=== PATIENT | male | born 1935 | race Caucasian/White ===

== ENCOUNTER 2019-06-03 07:32 | Observation (INO) | payer MEDICARE, OTHER ==
[2019-06-02 14:32] LABS: BASOPHILS # (AUTO) 0.08 x10^3/uL (0-0.1); BASOPHILS % (AUTO) 1 % (0-1); EOSINOPHILS % (AUTO) 8 % (1-7); LYMPHOCYTES # (AUTO) 2.11 x10^3/uL (1-3.4); LYMPHOCYTES % (AUTO) 16 % (22-44); MD NO; MEAN CORPUSCULAR HEMOGLOBIN 33.4 pg (27.5-34.5); MEAN CORPUSCULAR HGB CONC 33.3 g/dL (33.2-36.2); MEAN CORPUSCULAR VOLUME 100.5 fL (81-97); MEAN PLATELET VOLUME 7.7 fL (7.4-10.4); MONOCYTES # (AUTO) 0.87 x10^3/uL (0.2-0.8); MONOCYTES % (AUTO) 7 % (2-9); NEUTROPHILS # (AUTO) 8.92 x10^3/uL (1.8-6.8); NEUTROPHILS % (AUTO) 68 % (42-75); PLATELET COUNT 368 x10^3/uL (130-400); RED BLOOD COUNT 4.45 x10^6/uL (4.38-5.82); RED CELL DISTRIBUTION WIDTH 14.7 % (9.4-14.8)
[2019-06-02 14:43] LABS: ALBUMIN 3.8 g/dL (3.4-5.0); ANION GAP 7 mmol/L (5-15); CALCIUM 9.3 mg/dL (8.5-10.1); CHLORIDE 108 mmol/L (98-107)
[2019-06-02 14:46] LABS: ALANINE AMINOTRANSFERASE 25 U/L (12-78); ALKALINE PHOSPHATASE 94 U/L (45-117); BILIRUBIN,TOTAL 0.6 mg/dL (0.2-1.0); CREATININE 1.83 mg/dL (0.7-1.3); TOTAL PROTEIN 7.7 g/dL (6.4-8.2)
[~2019-06-03] VITALS: Ht 170.2 cm; Wt 70.5 kg
[~2019-06-03 07:32] MED LIST: AMOX1TAB12 PO; ASPI-496 PO; GLUC500T11 PO; HYDR-3240 PO; LIDOCAINE 1%-EPI 1:100K, 20ML ONE; METH500T7 PO; STATIN PO; TEST100V2 IM; TESTOSTERONE IM
[2019-06-03 08:31] VITALS: BP 150/91
[2019-06-03] MEDS ORDERED: LACTATED RINGERS 1,000 ML IV SCH (08:35)
[2019-06-03] MEDS ORDERED: TEST50AU INJ (09:04)
[2019-06-03] MEDS ORDERED: ATOR-2 PO (09:04)
[2019-06-03] MEDS ORDERED: FENTANYL PF 250 MCG/5ML ONE (09:17)
[2019-06-03] MEDS ORDERED: EPINEPHRINE TOPICAL SOLN 1 MG/ML, 30ML ONE (10:05)
[2019-06-03] MEDS ORDERED: EPINEPHRINE 1 MG/ML, 1ML ONE (10:05)
[2019-06-03] MEDS ORDERED: MINERAL OIL 10 ML VIAL MC ONE (10:05)
[2019-06-03] MEDS ORDERED: CEFAZOLIN 1,000 MG ONE (10:25)
[2019-06-03] MEDS ORDERED: HYDROmorphone 2 MG/ML, 1ML IVPush PRN (11:30)
[2019-06-03] MEDS ORDERED: PROMETHAZINE 25 MG/ML, 1ML IV PRN (11:30)
[2019-06-03] MEDS ORDERED: MORPHINE SULFATE 4 MG/ML, 1ML IVPush PRN (11:30)
[2019-06-03] MEDS ORDERED: OXYcodone 5 MG/5 ML ORAL.SOL UDC PO PRN (11:30)
[2019-06-03] MEDS ORDERED: FENTANYL PF 100 MCG/2ML IV PRN (11:30)
[2019-06-03] MEDS ORDERED: ONDANSETRON 2MG/ML, 2ML IV PRN (11:30)
[2019-06-03] MEDS ORDERED: ACETAMINOPHEN 325 MG TABLET PO PRN (11:30)
[2019-06-03] MEDS ORDERED: LABETALOL 5MG/ML, 20ML IV PRN (11:30)
[2019-06-03] MEDS ORDERED: hydrALAzine 20 MG/ML, 1ML IV PRN (11:30)
[2019-06-03] MEDS ORDERED: ONDANSETRON 2MG/ML, 2ML ONE (12:27)
[2019-06-03] MEDS ORDERED: DEXAMETHASONE 4 MG/ML, 1ML ONE (12:27)
[2019-06-03] MEDS ORDERED: PHENYLEPHRINE 10 MG/ML ONE (12:27)
[2019-06-03] MEDS ORDERED: PROPOFOL 10 MG/ML, 20ML ONE (12:27)
[2019-06-03] MEDS ORDERED: ROCURONIUM 10MG/ML,5ML ONE (12:27)
[2019-06-03] MEDS ORDERED: BACITRACIN OINT 500U/GM, 15 GM ONE (14:07)
[2019-06-03 15:00] VITALS: BP 118/72
[2019-06-03] MEDS ORDERED: HYDROmorphone 2 MG/ML, 1ML IV PRN (15:30)
[2019-06-03] MEDS ORDERED: ONDANSETRON 2MG/ML, 2ML IVPush PRN (15:30)
[2019-06-03 18:49] VITALS: BP 106/68
[2019-06-03] MEDS: ATORVASTATIN 80 MG TABLET PO SCH (20:30)
[2019-06-04] MEDS: LACTATED RINGERS 1,000 ML IV SCH ×2 (00:11→12:30)
[2019-06-04 00:47] VITALS: BP 108/65
[2019-06-04 04:52] VITALS: BP 97/60
[2019-06-04 07:28] VITALS: BP 103/66
[2019-06-04 13:25] VITALS: BP 96/61
[2019-06-04 19:10] VITALS: BP 97/60
[2019-06-04] MEDS: ATORVASTATIN 80 MG TABLET PO SCH (21:33)
[2019-06-05 01:20] VITALS: BP 108/55
[2019-06-05] MEDS: LACTATED RINGERS 1,000 ML IV SCH (04:19)
[2019-06-05 07:55] VITALS: BP 111/57
[2019-06-05 13:02] VITALS: BP 121/71
[2019-06-17] MEDS ORDERED: TESTOSTERONE ENANTHATE HOMEINJ SCH (15:30)
== END 2019-06-05 17:56 | disposition home or self-care (01) ==
LOC: ORIP 07:32 → INTOOBSV 07:32 → EDSTATUS 12:30 → 4NE 14:52
PROVIDERS: ADMIT Specialist; ATTEND Specialist
DX: C08.9 Malignant neoplasm of major salivary gland, unspecified (principal); R59.0 Localized enlarged lymph nodes; G47.33 Obstructive sleep apnea (adult) (pediatric); Z79.899 Other long term (current) drug therapy; Z85.828 Personal history of other malignant neoplasm of skin
CPT/HCPCS: 36415; 38724; 42420; 80053; 85025; 86850; 86900; 88305; 88341; 88342; 93005; G0378; J0690; J1100; J2370; J2405; J2704; J3010; J3490; J7120; J0171

== ENCOUNTER → 2019-09-08 | Outpatient (CLI) | payer MEDICARE ==
[~2019-09-08] MED LIST changes: +ATOR-2 PO; -LIDOCAINE 1%-EPI 1:100K, 20ML ONE; +TEST50AU INJ
== END | disposition home or self-care (01) ==
LOC: CVU 08:41
PROVIDERS: ATTEND Family Medicine
DX: I08.3 Combined rheumatic disorders of mitral, aortic and tricuspid valves (principal); E78.5 Hyperlipidemia, unspecified
CPT/HCPCS: 93306

== ENCOUNTER 2020-01-20 20:55 | Inpatient (IN) | payer MEDICARE, OTHER ==
[~2020-01-20] VITALS: Ht 170.2 cm; Wt 68.3 kg
[2020-01-20 23:04] VITALS: BP 107/68
[2020-01-21] MEDS ORDERED: ACETAMINOPHEN 325 MG TABLET PO PRN (01:00)
[2020-01-21] MEDS ORDERED: TRAZODONE 50MG TABLET PO PRN (01:00)
[2020-01-21] MEDS ORDERED: ONDANSETRON 2MG/ML, 2ML IVPush PRN (01:00)
[2020-01-21] MEDS ORDERED: LABETALOL 5MG/ML, 20ML IVPush PRN (01:00)
[2020-01-21] MEDS ORDERED: FURO40TA6 PO (01:33)
[2020-01-21] MEDS ORDERED: FURO20TA3 PO (01:35)
[2020-01-21 02:54] VITALS: BP 101/65
[2020-01-21 03:08] LABS: BASOPHILS # (AUTO) 0.06 x10^3/uL (0-0.1); BASOPHILS % (AUTO) 1 % (0-1); EOSINOPHILS # (AUTO) 0.94 x10^3/uL (0-0.4); EOSINOPHILS % (AUTO) 7 % (1-7); LYMPHOCYTES % (AUTO) 13 % (22-44); MD NO; MEAN CORPUSCULAR HEMOGLOBIN 31.5 pg (27.5-34.5); MEAN CORPUSCULAR HGB CONC 33.4 g/dL (33.2-36.2); MEAN CORPUSCULAR VOLUME 94.6 fL (81-97); MEAN PLATELET VOLUME 7.7 fL (7.4-10.4); MONOCYTES # (AUTO) 0.92 x10^3/uL (0.2-0.8); MONOCYTES % (AUTO) 7 % (2-9); NEUTROPHILS # (AUTO) 9.06 x10^3/uL (1.8-6.8); NEUTROPHILS % (AUTO) 72 % (42-75); PLATELET COUNT 399 x10^3/uL (130-400); RED BLOOD COUNT 3.83 x10^6/uL (4.38-5.82); RED CELL DISTRIBUTION WIDTH 14.3 % (9.4-14.8)
[2020-01-21 03:14] LABS: ANION GAP 5 mmol/L (5-15); CALCIUM 8.9 mg/dL (8.5-10.1); CHLORIDE 109 mmol/L (98-107); CREATININE 1.62 mg/dL (0.7-1.3)
[2020-01-21 07:48] VITALS: BP 107/67
[2020-01-21] MEDS: SENNA/DOCUSATE TABLET PO SCH (09:00)
[2020-01-21] MEDS: AMOXICILLIN/CLAV 875-125MG TABLET PO SCH ×2 (10:01→21:10)
[2020-01-21 12:31] VITALS: BP 106/63
[2020-01-21] MEDS ORDERED: SODIUM BICARBONATE 8.4% 100 MEQ in DEXTROSE 5% 1,000 ML IV SCH (17:30)
[2020-01-21 19:53] VITALS: BP 101/68
[2020-01-21] MEDS: ATORVASTATIN 80 MG TABLET PO SCH (21:10)
[2020-01-21] MEDS: ACETYLCYSTEINE 600 MG CAPSULE PO SCH (21:10)
[2020-01-21] MEDS: ARTIFICIAL TEARS 15 DROP/ML BOTTLE LEFTEYE PRN (22:46)
[2020-01-21] MEDS ORDERED: OMNIPAQUE 350 MG/ML, 100ML BOTTLE ONE (23:36)
[2020-01-22 00:37] VITALS: BP 110/66
[2020-01-22] MEDS: ARTIFICIAL TEARS 15 DROP/ML BOTTLE LEFTEYE PRN ×2 (03:19→19:52)
[2020-01-22] MEDS: ASPIRIN 81 MG TABLET EC PO SCH (05:37)
[2020-01-22 07:02] LABS: BASOPHILS # (AUTO) 0.05 x10^3/uL (0-0.1); BASOPHILS % (AUTO) 0 % (0-1); EOSINOPHILS # (AUTO) 0.96 x10^3/uL (0-0.4); EOSINOPHILS % (AUTO) 8 % (1-7); LYMPHOCYTES # (AUTO) 1.72 x10^3/uL (1-3.4); LYMPHOCYTES % (AUTO) 15 % (22-44); MD NO; MEAN CORPUSCULAR HGB CONC 33.7 g/dL (33.2-36.2); MEAN PLATELET VOLUME 7.8 fL (7.4-10.4); MONOCYTES # (AUTO) 0.75 x10^3/uL (0.2-0.8); MONOCYTES % (AUTO) 6 % (2-9); NEUTROPHILS # (AUTO) 8.18 x10^3/uL (1.8-6.8); NEUTROPHILS % (AUTO) 70 % (42-75); PLATELET COUNT 386 x10^3/uL (130-400); RED BLOOD COUNT 3.89 x10^6/uL (4.38-5.82); RED CELL DISTRIBUTION WIDTH 14.6 % (9.4-14.8)
[2020-01-22 07:14] VITALS: BP 115/71
[2020-01-22 07:17] LABS: ANION GAP 6 mmol/L (5-15); CALCIUM 8.9 mg/dL (8.5-10.1); CHLORIDE 107 mmol/L (98-107); CREATININE 1.61 mg/dL (0.7-1.3)
[2020-01-22] MEDS: SENNA/DOCUSATE TABLET PO SCH (09:00)
[2020-01-22] MEDS: AMOXICILLIN/CLAV 875-125MG TABLET PO SCH ×2 (10:01→19:52)
[2020-01-22] MEDS: ACETYLCYSTEINE 600 MG CAPSULE PO SCH ×2 (10:01→19:52)
[2020-01-22] MEDS ORDERED: PHARMACY MAY ADJ FOR RENAL FX MC PRN (14:00)
[2020-01-22 14:03] VITALS: BP 108/65
[2020-01-22 19:18] VITALS: BP 115/73
[2020-01-22 19:22] VITALS: BP 95/52
[2020-01-22] MEDS: ATORVASTATIN 80 MG TABLET PO SCH (19:52)
[2020-01-23 00:42] VITALS: BP 113/71
[2020-01-23] MEDS: ASPIRIN 81 MG TABLET EC PO SCH (05:01)
[2020-01-23 06:52] LABS: BASOPHILS # (AUTO) 0.05 x10^3/uL (0-0.1); BASOPHILS % (AUTO) 0 % (0-1); EOSINOPHILS # (AUTO) 0.74 x10^3/uL (0-0.4); EOSINOPHILS % (AUTO) 6 % (1-7); LYMPHOCYTES # (AUTO) 1.12 x10^3/uL (1-3.4); LYMPHOCYTES % (AUTO) 9 % (22-44); MD NO; MEAN CORPUSCULAR HEMOGLOBIN 31.6 pg (27.5-34.5); MEAN CORPUSCULAR HGB CONC 33.5 g/dL (33.2-36.2); MEAN CORPUSCULAR VOLUME 94.4 fL (81-97); MEAN PLATELET VOLUME 7.8 fL (7.4-10.4); MONOCYTES # (AUTO) 0.91 x10^3/uL (0.2-0.8); MONOCYTES % (AUTO) 7 % (2-9); NEUTROPHILS # (AUTO) 10.18 x10^3/uL (1.8-6.8); NEUTROPHILS % (AUTO) 78 % (42-75); PLATELET COUNT 387 x10^3/uL (130-400); RED BLOOD COUNT 3.89 x10^6/uL (4.38-5.82); RED CELL DISTRIBUTION WIDTH 14.2 % (9.4-14.8)
[2020-01-23 06:56] LABS: ANION GAP 8 mmol/L (5-15); CALCIUM 8.7 mg/dL (8.5-10.1); CHLORIDE 107 mmol/L (98-107)
[2020-01-23 06:58] VITALS: BP 116/72
[2020-01-23 06:58] LABS: CREATININE 1.47 mg/dL (0.7-1.3)
[2020-01-23] MEDS: SENNA/DOCUSATE TABLET PO SCH (09:00)
[2020-01-23] MEDS: ACETYLCYSTEINE 600 MG CAPSULE PO SCH (09:53)
[2020-01-23] MEDS: AMOXICILLIN/CLAV 875-125MG TABLET PO SCH (09:54)
[2020-01-23] MEDS ORDERED: AMOX1TAB12 PO (10:58)
[2020-01-23] MEDS ORDERED: ASPI81TA45 PO (10:58)
[2020-01-23 12:42] VITALS: BP 119/64
== END 2020-01-23 18:59 | disposition home or self-care (01) | DRG 862 ==
LOC: 3WST 22:38
PROVIDERS: ADMIT Family Medicine; ATTEND Family Medicine
DX: T81.49XA Infection following a procedure, other surgical site, initial encounter (principal); E43 Unspecified severe protein-calorie malnutrition; L03.211 Cellulitis of face; I50.22 Chronic systolic (congestive) heart failure; J96.10 Chronic respiratory failure, unspecified whether with hypoxia or hypercapnia; I27.20 Pulmonary hypertension, unspecified; I08.1 Rheumatic disorders of both mitral and tricuspid valves; G47.33 Obstructive sleep apnea (adult) (pediatric); C44.92 Squamous cell carcinoma of skin, unspecified; N18.3 Chronic kidney disease, stage 3 (moderate); D64.9 Anemia, unspecified; E78.5 Hyperlipidemia, unspecified; I65.23 Occlusion and stenosis of bilateral carotid arteries; Z85.828 Personal history of other malignant neoplasm of skin; D72.829 Elevated white blood cell count, unspecified; R91.1 Solitary pulmonary nodule; Z68.23 Body mass index [BMI] 23.0-23.9, adult; Y83.9 Surgical procedure, unspecified as the cause of abnormal reaction of the patient, or of later complication, without mention of misadventure at the time of the procedure
CPT/HCPCS: 36415; 70450; 71260; 74177; 80048; 85025; 87040; G0378; J7070; Q9967